=== PATIENT | female | born 1990 | race African-American/Black ===

== ENCOUNTER 2017-08-22 06:53 | Emergency (ER) | payer SELFPAY ==
[2017-08-22] MEDS ORDERED: LIDOCAINE 2% JELLY 5 ML TUBE TOP ONE (07:16)
--- NOTE | 2017-08-22 07:36 | ER Document Report ---
HPI - HPI Patient complains to provider of: Herpes rash for 3 months Onset: Other - 3 months Onset/Duration: Persistent Pain Level: 3 Context: 27-year-old female complaining of a itchy rash in her vagina and introitus for 3 months. She [facility] and was treated for herpes but it still is there. She had gestational diabetes and is wondering what her glucose is now because she has increased urinary frequency and blurred vision over the past 3 months as well. I will screen her for STDs and get an Accu-Chek. We will also check a urinalysis for UTI. No pelvic pain no fever no abdominal pain. Associated Symptoms: None Exacerbated by: Denies Relieved by: Denies Similar symptoms previously: Yes Recently seen / treated by doctor: No - ROS ROS below otherwise negative: Yes Systems Reviewed and Negative: Yes All other systems reviewed and negative - REPRODUCTIVE LMP: 08-07-17 Reproductive: REPORTS: : Past Medical History - General Information source: Patient - Social History Smoking Status: Current Every Day Smoker Frequency of alcohol use: None Drug Abuse: None Lives with: Family Family History: Reviewed & Not Pertinent - Medical History Notes: Gestational diabetes and insulin needed after childbirth in 2016. She has not had insulin for 2 years. Pulmonary Medical History: Reports: Hx Asthma - mdi Surgical Hx: Negative - Immunizations Hx Diphtheria, Pertussis, Tetanus Vaccination: Yes Hx Pneumococcal Vaccination: 08/02/12 Vertical Provider Document - CONSTITUTIONAL Agree With Documented VS: Yes - INFECTION CONTROL TRAVEL OUTSIDE OF THE U.S. IN LAST 30 DAYS: No - HEENT HEENT: Normocephalic - NECK Neck: Supple - RESPIRATORY Respiratory: Breath Sounds Normal, No Respiratory Distress - CARDIOVASCULAR Cardiovascular: Regular Rate, Regular Rhythm - GI/ABDOMEN Gastrointestinal: Abdomen Soft, Abdomen Non-Tender, No Organomegaly - REPRODUCTIVE Female Genitalia: negative: CMT Notes: inflamed introitus with clumpy white vaginal discharge in the vault - BACK Back: Normal Inspection. negative: CVA Tenderness-Right, CVA Tenderness-Left - MUSCULOSKELETAL/EXTREMETIES Musculoskeletal/Extremeties: MAEW - NEURO Level of Consciousness: Awake - DERM Notes: see civil estimator note Course - Re-evaluation Re-evalutation: 08/22/17 07:41 Accu-Chek is 512 on 518. She states she has a urinary frequency since April. Last time she took insulin was 2 years ago. She did not have diabetes until she was in 2016. Will order serum labs. 08/22/17 07:59 The introitus is red and irritated patient states the itching intravaginal looks like yeast I sent the specimens down. I will give her 2 L of normal saline to dilute her glucose down and she states she has never taken oral medicine for diabetes only insulin. 08/22/17 08:47 Wet prep has no yeast which is inconsistent with a physical exam but it does have 4+ bacteria 4+ epi is I will treat her with Flagyl. 08/22/17 09:33 Accu-Chek is down to 377 or 390 2:09 liters of normal saline. 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 drink 2 liters of water daily go to [facility] for your care Prescriptions: Lancets [Glucocom Lancets] 1 each MC BID #1 packet Lancets [Glucocom] 1 each MC DAILY #1 each Metformin HCl [Glucophage] 1,000 mg PO BID #60 tablet Metronidazole 500 mg PO BID #14 tablet Referrals: LEATHA ALTAMIRANO MD [ACTIVE STAFF] - Follow up as needed
[2017-08-22] MEDS ORDERED: NORMAL SALINE 1000 ML 2,000 ML IV ONE (07:58)
[2017-08-22] MEDS ORDERED: NYSTATIN/TRIAMCIN CREAM 15 GM TP ONE (07:58)
[2017-08-22 08:10] LABS: ABSOLUTE EOSINOPHILS # (AUTO) 0.1 10^3/uL (0.0-0.6); ABSOLUTE LYMPHOCYTES (AUTO) 1.8 10^3/uL (0.5-4.7); ABSOLUTE MONOCYTES (AUTO) 0.6 10^3/uL (0.1-1.4); ABSOLUTE NEUT (AUTO) 3.3 10^3/uL (1.7-8.2); BASOPHILS % (AUTO) 0.6 % (0-2); HEMATOCRIT 34.6 % (36.0-47.0); HEMOGLOBIN 11.3 g/dL (12.0-15.5); LYMPHOCYTES % (AUTO) 31.5 % (13-45); MEAN CORPUSCULAR HEMOGLOBIN 26.5 pg (27.0-33.4); MEAN CORPUSCULAR HGB CONC 32.5 g/dL (32.0-36.0); MEAN CORPUSCULAR VOLUME 82 fl (80-97); MONOCYTES % (AUTO) 10.4 % (3-13); PLATELET COUNT 203 10^3/uL (150-450); RED BLOOD COUNT 4.25 10^6/uL (3.72-5.28); RED CELL DISTRIBUTION WIDTH 15.3 % (11.5-14.0); SEGMENTED NEUTROPHILS % (AUTO) 56.5 % (42-78); TOTAL CELLS COUNTED % (AUTO) 100 %; WHITE BLOOD COUNT 5.8 10^3/uL (4.0-10.5)
[2017-08-22 08:13] LABS: T.VAGINALIS (WET MOUNT) NO TRICHOMONAS SEEN; YEAST (WET MOUNT) NO YEAST SEEN
[2017-08-22 08:14] LABS: BACTERIA (WET MOUNT) 4+ BACTERIA SEEN; EPITHELIALS (WET MOUNT) 4+ EPITHELIALS SEEN; WBCS (WET MOUNT) FEW WBCS SEEN
[2017-08-22 08:15] LABS: APPEARANCE,URINE CLEAR; BILIRUBIN,URINE NEGATIVE (NEGATIVE); COLOR,URINE STRAW; GLUCOSE, URINE >=500 mg/dL (NEGATIVE); KETONES,URINE 20 mg/dL (NEGATIVE); LEUKOCYTE ESTERASE,URINE NEGATIVE (NEGATIVE); NITRITE,URINE NEGATIVE (NEGATIVE); PROTEIN,URINE NEGATIVE (NEGATIVE); URINE SPECIFIC GRAVITY 1.024; UROBILINOGEN,URINE NEGATIVE mg/dL (<2.0)
[2017-08-22 08:27] LABS: ALANINE AMINOTRANSFERASE 76 U/L (9-52); ALKALINE PHOSPHATASE 220 U/L (38-126); ANION GAP 9 (5-19); ASPARTATE AMINO TRANSFERASE 63 U/L (14-36); BILIRUBIN,DIRECT 0.2 mg/dL (0.0-0.4); BILIRUBIN,TOTAL 0.2 mg/dL (0.2-1.3); BLOOD UREA NITROGEN 4 mg/dL (7-20); CALCIUM 9.3 mg/dL (8.4-10.2); CARBON DIOXIDE 25 mmol/L (22-30); CHLORIDE 101 mmol/L (98-107); POTASSIUM 4.2 mmol/L (3.6-5.0); SODIUM 135.3 mmol/L (137-145); TOTAL PROTEIN 7.1 g/dL (6.3-8.2)
[2017-08-22] MEDS ORDERED: METRONIDAZOLE 500 MG TABLET PO ONE (08:35)
[2017-08-22] MEDS ORDERED: ONDANSETRON 4 MG TAB.RAPDIS PO ONE (08:35)
[2017-08-22 08:36] LABS: GLUCOSE 514 mg/dL (75-110)
[2017-08-22 09:39] LABS: CHLAM PCR NOT DETECTED (NOT DETECT); GON PCR NOT DETECTED (NOT DETECT)
[2017-08-22 09:48] VITALS: BP 129/86
[2017-08-22] MEDS ORDERED: NORMAL SALINE 1000 ML 1,000 ML IV ONE (11:27)
== END 2017-08-22 10:00 | disposition home or self-care (01) ==
LOC: ER 06:53
DX: E11.65 Type 2 diabetes mellitus with hyperglycemia (principal); R35.0 Frequency of micturition; R21 Rash and other nonspecific skin eruption; F17.200 Nicotine dependence, unspecified, uncomplicated; Z79.4 Long term (current) use of insulin
CPT/HCPCS: 99285; 96360; 36415; 87086; 87210; 82962; 85025; 81025; 80053; 81001; 87491; 87591; S0119; J3490; J7030

== ENCOUNTER 2018-07-14 08:55 | Emergency (ER) | payer MEDICAID ==
[2018-07-14 09:05] VITALS: BP 120/87
--- NOTE | 2018-07-14 09:53 | ER Document Report ---
HPI - HPI Time Seen by Provider: 07/14/18 09:12 Onset/Duration: Gradual Quality of pain: Achy Pain Level: 1 Context: Patient presents with a 5-day history of cough, body aches and subjective fever at home. Associated Symptoms: Body/muscle aches, Nonproductive cough, Fever. denies: Rhinnorhea Exacerbated by: Denies Relieved by: Denies Similar symptoms previously: Yes Recently seen / treated by doctor: No - ROS ROS below otherwise negative: Yes Systems Reviewed and Negative: Yes All other systems reviewed and negative - CONSTITUTIONAL Constitutional: REPORTS: Fever - EENT EENT: REPORTS: Congestion - RESPIRATORY Respiratory: REPORTS: Coughing - GASTROINTESTINAL Gastrointestinal: DENIES: Nausea, Patient vomiting - REPRODUCTIVE Reproductive: DENIES: : - DERM Skin Color: Normal Skin Problems: None Past Medical History - General Information source: Patient - Social History Smoking Status: Current Every Day Smoker Chew tobacco use (# tins/day): No Smoking Education Provided: Yes Frequency of alcohol use: Occasional Drug Abuse: None Occupation: Call center Family History: Reviewed & Not Pertinent Patient has suicidal ideation: No Patient has homicidal ideation: No Pulmonary Medical History: Reports: Hx Asthma - mdi Neurological Medical History: Denies: Hx Cerebrovascular Accident, Hx Seizures Endocrine Medical History: Reports: Hx Diabetes Mellitus Type 2 Renal/ Medical History: Denies: Hx Peritoneal Dialysis Musculoskeletal Medical History: Denies Hx Arthritis Surgical Hx: Negative - Immunizations Hx Diphtheria, Pertussis, Tetanus Vaccination: Yes Hx Pneumococcal Vaccination: 08/02/12 Vertical Provider Document - CONSTITUTIONAL Agree With Documented VS: Yes Exam Limitations: No Limitations General Appearance: WD/WN, No Apparent Distress - INFECTION CONTROL TRAVEL OUTSIDE OF THE [place] IN LAST 30 DAYS: No - HEENT HEENT: Atraumatic, Normocephalic. negative: Pharyngeal Exudate, Pharyngeal Tenderness, Pharyngeal Erythema, Tympanic Membrane Red, Tympanic Membrane Bulging Notes: Clear rhinorrhea - NECK Neck: Normal Inspection, Supple. negative: Lymphadenopathy-Left, Lymphadenopathy-Right - RESPIRATORY Respiratory: No Respiratory Distress, Chest Non-Tender, Other - Occasional cough - CARDIOVASCULAR Cardiovascular: Regular Rate, Regular Rhythm, No Murmur - GI/ABDOMEN Gastrointestinal: Abdomen Soft - BACK Back: Normal Inspection - MUSCULOSKELETAL/EXTREMETIES Musculoskeletal/Extremeties: NORMAN TORRES - NEURO Level of Consciousness: Awake, Alert, Appropriate Motor/Sensory: No Motor Deficit - DERM Integumentary: Warm, Dry, No Rash Course - Re-evaluation Re-evalutation: 07/14/18 09:52 Offered patient chest x-ray, patient declines stating that she only came here today for a work note. Patient states she feels her symptoms are better. - Vital Signs Vital signs: Temp Pulse Resp BP Pulse Ox 98.1 F 80 16 120/87 H 98 07/14/18 09:01 07/14/18 09:01 07/14/18 09:01 07/14/18 09:01 07/14/18 09:01 Discharge - Discharge Clinical Impression: Upper respiratory infection Qualifiers: URI type: unspecified URI Qualified Code(s): J06.9 - Acute upper respiratory infection, unspecified Condition: Stable Disposition: HOME, SELF-CARE Instructions: Acetaminophen, Upper Respiratory Illness ([facility]) Additional Instructions: Return immediately for any new or worsening symptoms Followup with your primary care provider, call tomorrow to make a followup appointment Forms: Smoking Cessation Education, Return to Work Referrals: [facility] [Provider Group] - Follow up as needed
== END 2018-07-14 09:56 | disposition home or self-care (01) ==
LOC: ER 08:55
DX: J06.9 Acute upper respiratory infection, unspecified (principal); R05 Cough; M79.10 Myalgia, unspecified site; J34.89 Other specified disorders of nose and nasal sinuses; J45.909 Unspecified asthma, uncomplicated; E11.9 Type 2 diabetes mellitus without complications; F17.200 Nicotine dependence, unspecified, uncomplicated
CPT/HCPCS: 99283

== ENCOUNTER 2018-07-22 17:34 | Emergency (ER) | payer MEDICAID ==
[2018-07-22] MEDS ORDERED: PHENAZOPYRIDINE HCL 200 MG TABLET PO ONE (19:47)
[2018-07-22] MEDS ORDERED: IBUPROFEN 600 MG TABLET PO ONE (19:47)
--- NOTE | 2018-07-22 19:49 | ER Document Report ---
ED GI/ - General Mode of Arrival: Ambulatory Information source: Patient TRAVEL OUTSIDE OF THE U.[place]. IN LAST 30 DAYS: No - HPI Patient complains to provider of: Dysuria - General Chief Complaint: Urinary Problem Stated Complaint: URINARY ISSUE Time Seen by Provider: 07/22/18 19:41 Primary Care Provider: [facility] [Provider Group] - Follow up as needed - HPI Notes: 07/22/18 19:48 Patient is here with complaints of dysuria for the last week. States she is al so noticed some blood in her urine. She has been having some lower abdominal cramping and now has some low back pain. No fevers. No nausea, vomiting. No diarrhea. No chest pain or shortness of breath. No injury. No rash. No difficulty controlling bowels or bladder. Pain in her back is constant, nothing makes it better or worse. Lower abdominal discomfort is intermittent and she denies any abdominal pain now. She denies any other complaints at this time. No vaginal bleeding or discharge. (STEVE WEBB) - Related Data Allergies/Adverse Reactions: No Known Allergies Allergy (Verified 07/14/18 08:58) Past Medical History - General Last Menstrual Period: last month - Social History Smoking Status: Current Every Day Smoker Frequency of alcohol use: Occasional Drug Abuse: None Family History: Reviewed & Not Pertinent Patient has suicidal ideation: No Patient has homicidal ideation: No - Past Medical History Cardiac Medical History: Denies: Hx Coronary Artery Disease, Hx Heart Attack, Hx Hypertension Pulmonary Medical History: Reports: Hx Asthma - mdi Denies: Hx Bronchitis, Hx COPD, Hx Pneumonia Neurological Medical History: Denies: Hx Cerebrovascular Accident, Hx Seizures Endocrine Medical History: Reports: Hx Diabetes Mellitus Type 2 Renal/ Medical History: Denies: Hx Peritoneal Dialysis Musculoskeletal Medical History: Denies Hx Arthritis - Immunizations Hx Diphtheria, Pertussis, Tetanus Vaccination: Yes Hx Pneumococcal Vaccination: 08/02/12 Review of Systems - Review of Systems -: Yes All other systems reviewed and negative Physical Exam - Vital signs Vitals: Temp Pulse Resp BP Pulse Ox 98.2 F 69 18 123/78 99 07/22/18 18:01 07/22/18 18:01 07/22/18 18:01 07/22/18 18:01 07/22/18 18:01 - Notes Notes: GENERAL: alert, cooperative, nontoxic, no distress. HEAD: normocephalic, atraumatic EYES: conjunctiva pink without discharge, no external redness or swelling. EARS: no external swelling, no external redness NOSE: atraumatic, no external swelling MOUTH/THROAT: mucous membranes moist and pink, posterior pharynx without erythema, swelling, exudate. No trismus or drooling. NECK: soft, supple, full range of motion, no meningismus. CHEST: no distress, lungs clear and equal throughout. No wheezing, rales, rhonchi. CARDIAC: regular rate and rhythm, no murmur, normal capillary refill, normal pulses. No peripheral edema noted. ABDOMEN: Soft, nontender. No rebound tenderness or guarding. No mass. BACK: full range of motion, no CVA tenderness. EXTREMITIES: full range of motion of all extremities. No redness, no swelling. NEURO: alert and oriented x 3, no focal deficits, full range of motion of all extremities. PYSCH: appropriate mood, affect. Patient is cooperative. SKIN: pink, warm, dry, no rash. (STEVE WEBB) Course - Re-evaluation Re-evalutation: 07/22/18 20:52 Patient is nontoxic-appearing with stable vitals. Patient here with complaints of urinary symptoms consistent with previous UTI she had in the past. No fever. She is no CVA tenderness on exam and has no focal abdominal tenderness on exam. She is afebrile and her vitals are stable. Urinalysis is currently pending at this time. Based on the patient's symptoms I anticipate that she will have a urinary tract infection. If her urine is positive for UTI, the patient will be discharged home with Keflex and Pyridium. If negative further evaluation will be indicated. [facility] Roger will look at UA results. (STEVE WEBB) 07/22/18 21:04 Laboratory 07/22/18 19:57 Urine Color YELLOW Urine Appearance CLOUDY Urine pH 6.0 Ur Specific [place] 1.024 Urine Protein NEGATIVE Urine Glucose (UA) NEGATIVE Urine Ketones NEGATIVE Urine Blood NEGATIVE Urine Nitrite POSITIVE H Urine Bilirubin NEGATIVE Urine Urobilinogen NEGATIVE Ur Leukocyte Esterase NEGATIVE Urine WBC (Auto) 9 Urine RBC (Auto) 3 U Hyaline Cast (Auto) 1 Urine Bacteria (Auto) 1+ Squamous Epi Cells Auto 5 Urine Mucus (Auto) FEW Urine Ascorbic Acid NEGATIVE Urine HCG, Qual NEGATIVE Although WBC are 9 and Squamous are 5, could be a contaminated sample. +1 Bacteria and +Nitrites, will treat for UTI, CX sent. Pt. stable for D/C, non-tachycardic, afebrile. (ADRIAN HEBERT) - Vital Signs Vital signs: Temp Pulse Resp BP Pulse Ox 98.2 F 69 18 123/78 99 07/22/18 18:01 07/22/18 18:01 07/22/18 18:01 07/22/18 18:01 07/22/18 18:01 - Laboratory Laboratory results interpreted by me: 07/22/18 19:57 Urine Nitrite POSITIVE H Discharge - Discharge Clinical Impression: UTI (urinary tract infection) Qualifiers: Urinary tract infection type: acute cystitis Hematuria presence: with hematuria Qualified Code(s): N30.01 - Acute cystitis with hematuria Condition: Stable Disposition: HOME, SELF-CARE Instructions: Cephalexin ([facility]), Urinary Tract Infection ([facility]) Additional Instructions: Take medication as prescribed. Drink lots of fluids. Follow-up if not better in the next 3 to 5 days, sooner for worsening pain, fever, persistent vomiting, flank pain, or for any further concerns. Prescriptions: Cephalexin Monohydrate [Keflex 500 mg Capsule] 500 mg PO Q6H 7 Days #28 capsule Phenazopyridine HCl [Pyridium 200 mg Tablet] 200 mg PO TID #9 tablet Forms: Smoking Cessation Education Referrals: [facility] [Provider Group] - Follow up as needed
[2018-07-22 20:55] LABS: APPEARANCE,URINE CLOUDY; BILIRUBIN,URINE NEGATIVE (NEGATIVE); COLOR,URINE YELLOW; GLUCOSE, URINE NEGATIVE (NEGATIVE); KETONES,URINE NEGATIVE (NEGATIVE); LEUKOCYTE ESTERASE,URINE NEGATIVE (NEGATIVE); NITRITE,URINE POSITIVE (NEGATIVE); PROTEIN,URINE NEGATIVE (NEGATIVE); URINE SPECIFIC GRAVITY 1.024; UROBILINOGEN,URINE NEGATIVE mg/dL (<2.0)
[2018-07-22 21:53] VITALS: BP 127/82
== END 2018-07-22 21:35 | disposition home or self-care (01) ==
LOC: ER 17:34
DX: N30.01 Acute cystitis with hematuria (principal); F17.200 Nicotine dependence, unspecified, uncomplicated; E11.9 Type 2 diabetes mellitus without complications
CPT/HCPCS: 99283; 87086; 81025; 87088; 81001; 87186; J3490 ×2

== ENCOUNTER 2018-09-07 13:15 | Emergency (ER) | payer MEDICAID ==
--- NOTE | 2018-09-07 14:40 | ER Document Report ---
ED Medical Screen (RME) - General Chief Complaint: Vaginal Bleeding Stated Complaint: ABDOMINAL PAIN,VAGAINAL BLEEDING Time Seen by Provider: 09/07/18 14:23 Mode of Arrival: Ambulatory Information source: Patient Notes: Patient is a healthy 28-year-old female presenting to the emergency department with complaints of passing large blood clots and lower abdominal pain after having a chemical done on Wednesday which was 5 days ago. Patient reports she is passing blood clots larger than the size of a golf ball. Patient reports that she did pass the fetus several days ago. She reports mild nausea with vomiting. She reports she is changing her pad at least once per hour. Exam: Low abdominal tenderness upon palpation. I have greeted and performed a rapid initial assessment of this patient. A comprehensive ED assessment and evaluation of the patient, analysis of test results and completion of the medical decision making process will be conducted by additional ED providers. Dictation of this chart was performed using voice recognition software; therefore, there may be some unintended grammatical errors. TRAVEL OUTSIDE OF THE [place]. IN LAST 30 DAYS: No - Related Data Allergies/Adverse Reactions: No Known Allergies Allergy (Verified 07/14/18 08:58) Past Medical History - Social History Chew tobacco use (# tins/day): No Frequency of alcohol use: None Drug Abuse: None - Past Medical History Cardiac Medical History: Denies: Hx Coronary Artery Disease, Hx Heart Attack, Hx Hypertension Pulmonary Medical History: Reports: Hx Asthma - mdi Denies: Hx Bronchitis, Hx COPD, Hx Pneumonia Neurological Medical History: Denies: Hx Cerebrovascular Accident, Hx Seizures Endocrine Medical History: Reports: Hx Diabetes Mellitus Type 2 Renal/ Medical History: Denies: Hx Peritoneal Dialysis Musculoskeltal Medical History: Denies Hx Arthritis - Immunizations Hx Diphtheria, Pertussis, Tetanus Vaccination: Yes Physical Exam - Vital signs Vitals: Temp Pulse Resp BP Pulse Ox 98.6 F 77 20 127/79 H 99 09/07/18 13:20 09/07/18 13:20 09/07/18 13:20 09/07/18 13:20 09/07/18 13:20 Course - Vital Signs Vital signs: Temp Pulse Resp BP Pulse Ox 98.6 F 77 20 127/79 H 99 09/07/18 13:20 09/07/18 13:20 09/07/18 13:20 09/07/18 13:20 09/07/18 13:20
[2018-09-07 15:40] LABS: ABSOLUTE BASOPHILS # (AUTO) 0.1 10^3/uL (0.0-0.2); ABSOLUTE EOSINOPHILS # (AUTO) 0.1 10^3/uL (0.0-0.6); ABSOLUTE LYMPHOCYTES (AUTO) 2.7 10^3/uL (0.5-4.7); ABSOLUTE MONOCYTES (AUTO) 0.4 10^3/uL (0.1-1.4); ABSOLUTE NEUT (AUTO) 2.5 10^3/uL (1.7-8.2); BASOPHILS % (AUTO) 1.3 % (0-2); HEMATOCRIT 30.5 % (36.0-47.0); LYMPHOCYTES % (AUTO) 47.4 % (13-45); MEAN CORPUSCULAR HEMOGLOBIN 26.5 pg (27.0-33.4); MEAN CORPUSCULAR HGB CONC 32.8 g/dL (32.0-36.0); MEAN CORPUSCULAR VOLUME 81 fl (80-97); MONOCYTES % (AUTO) 6.4 % (3-13); PLATELET COUNT 190 10^3/uL (150-450); RED BLOOD COUNT 3.79 10^6/uL (3.72-5.28); RED CELL DISTRIBUTION WIDTH 19.4 % (11.5-14.0); SEGMENTED NEUTROPHILS % (AUTO) 42.9 % (42-78); TOTAL CELLS COUNTED % (AUTO) 100 %; WHITE BLOOD COUNT 5.7 10^3/uL (4.0-10.5)
[2018-09-07 15:44] LABS: APPEARANCE,URINE CLOUDY; BILIRUBIN,URINE NEGATIVE (NEGATIVE); COLOR,URINE YELLOW; GLUCOSE, URINE NEGATIVE (NEGATIVE); KETONES,URINE NEGATIVE (NEGATIVE); LEUKOCYTE ESTERASE,URINE TRACE (NEGATIVE); NITRITE,URINE NEGATIVE (NEGATIVE); PROTEIN,URINE 100 mg/dL (NEGATIVE); URINE SPECIFIC GRAVITY 1.025; UROBILINOGEN,URINE NEGATIVE mg/dL (<2.0)
--- NOTE | 2018-09-07 17:20 | RADIOLOGY REPORT (SQ) ---
EXAM DESCRIPTION: U/S [id number] TRNABD 1GES W/ODOP COMPLETED DATE/TIME: 09/07/2018 5:00 pm REASON FOR STUDY: recent , eval for retained POC COMPARISON: None. TECHNIQUE: Transabdominal static and realtime grayscale images acquired of the pelvis. Additional se lected spectral and color Doppler images recorded. All images stored on PACs. CLINICAL AGE: 8 weeks 0 days bHCG: Pending. LIMITATIONS: None. FINDINGS: UTERUS: No masses. No anomalies. GESTATIONAL SAC: There is a possible gestational in the uterus. Estimated gestational age 5 weeks 5 days. This is less than the clinical dates. YOLK SAC: No POLE: None present. RIGHT ADNEXA: Normal ovary with normal vascular flow. No adnexal free fluid. No adnexal masses. LEFT ADNEXA: Ovary not identified due to poor acoustical window. No adnexal free fluid. No adnexal masses. FREE FLUID: None. OTHER: No other significant finding. IMPRESSION: Possible gestational sac in the uterus, however this is less than the clinical dates. BHCG LEVEL NOT AVAILABLE FOR CORRELATION WITH US FINDINGS. CONSIDER F/U BHCG AND/OR ULTRASOUND FOR VERIFICATION . Trimester of : First - 0 to 13 weeks. TECHNICAL DOCUMENTATION: JOB ID: [id number] [employer]- All Rights Reserved Reading location - IP/workstation name: [email or web address]
--- NOTE | 2018-09-07 21:26 | ER Document Report ---
ED General - General Chief Complaint: Vaginal Bleeding Stated Complaint: ABDOMINAL PAIN,VAGAINAL BLEEDING Time Seen by Provider: 09/07/18 14:23 Mode of Arrival: Ambulatory Notes: Patient is a healthy 28-year-old female presenting to the emergency department with complaints of passing large blood clots and lower abdominal pain after having a chemical done on Wednesday. Patient reports she is passing blood clots larger than the size of a golf ball. Patient reports that she did pass the fetus several days ago. She reports mild nausea with vomiting. She also complains of tearing abdominal pain that is not joe to cramping. She reports she is changing her pad at least once per hour. She denies fevers or chills, shortness of breath or chest pain, dizziness/lightheadedness, weakness, numbness tingling in any of her extremities. No other complaints. She states she did get RhoGam injection at the clinic in [place] where she had the procedure done. TRAVEL OUTSIDE OF THE [place]. IN LAST 30 DAYS: No - Related Data Allergies/Adverse Reactions: No Known Allergies Allergy (Verified 07/14/18 08:58) Past Medical History - General Information source: Patient - Social History Smoking Status: Current Every Day Smoker Chew tobacco use (# tins/day): No Frequency of alcohol use: None Drug Abuse: None Family History: Reviewed & Not Pertinent Patient has suicidal ideation: No Patient has homicidal ideation: No - Past Medical History Cardiac Medical History: Denies: Hx Coronary Artery Disease, Hx Heart Attack, Hx Hypertension Pulmonary Medical History: Reports: Hx Asthma - mdi Denies: Hx Bronchitis, Hx COPD, Hx Pneumonia Neurological Medical History: Denies: Hx Cerebrovascular Accident, Hx Seizures Endocrine Medical History: Reports: Hx Diabetes Mellitus Type 2 Renal/ Medical History: Denies: Hx Peritoneal Dialysis Musculoskeletal Medical History: Denies Hx Arthritis - Immunizations Hx Diphtheria, Pertussis, Tetanus Vaccination: Yes Hx Pneumococcal Vaccination: 08/02/12 Review of Systems - Review of Systems Constitutional: See HPI EENT: No symptoms reported Cardiovascular: See HPI Respiratory: See HPI Gastrointestinal: No symptoms reported Genitourinary: No symptoms reported Female Genitourinary: See HPI Musculoskeletal: No symptoms reported Skin: No symptoms reported Hematologic/Lymphatic: No symptoms reported Neurological/Psychological: See HPI Physical Exam - Vital signs Vitals: Temp Pulse Resp BP Pulse Ox 98.6 F 77 20 127/79 H 99 09/07/18 13:20 09/07/18 13:20 09/07/18 13:20 09/07/18 13:20 09/07/18 13:20 - Notes Notes: PHYSICAL EXAMINATION: Reviewed vital signs and charting by RN GENERAL: Alert, interacts well. No acute distress. HEAD: Normocephalic, atraumatic. EYES: Pupils equal and round. Extraocular movements intact. ENT: Oral mucosa moist, tongue midline. NECK: Full range of motion. Trachea midline. LUNGS: Clear to auscultation bilaterally, no wheezes, rales, or rhonchi. No respiratory distress. HEART: Regular rate and rhythm. No murmur ABDOMEN: soft, left lower quadrant tenderness to palpation, suprapubic tenderness. No distention. Bowel sounds present : Pelvic exam performed with DANIELLE Murguia, wood calker. Scant amount of blood in the vaginal introitus, cervical loss partially open with a small clot present, no gross heavy bleeding. No abnormal discharge. EXTREMITIES: Moves all 4 extremities spontaneously. No edema, No cyanosis. PSYCH: Normal affect, normal mood. SKIN: Warm, dry, normal turgor. No rashes or lesions noted. Course - Re-evaluation Re-evalutation: 09/07/18 21:25 Overall well-appearing, vital signs within normal limits, patient is not tachycardic or symptomatic. Hemoglobin 10 but patient has baseline anemia and no major changes from previous blood work. Patient states she did get RhoGam injection at the [facility] where she had a chemical performed. Her blood work was overall within normal limits except for hemoglobin of 10 as noted. Transvaginal ultrasound showed possible small amount of retained products of conception. Because cervical loss still open and her symptoms have improved greatly since this morning I have given her strict return precautions and anticipatory guidance. At this time patient is stable for discharge. - Vital Signs Vital signs: Temp Pulse Resp BP Pulse Ox 98.4 F 79 18 105/56 L 98 09/07/18 18:11 09/07/18 18:11 09/07/18 18:11 09/07/18 18:11 09/07/18 18:11 - Laboratory Result Diagrams: 09/07/18 15:00 Laboratory results interpreted by me: 09/07/18 09/07/1819 15:00 15:00 15:00 Hgb 10.0 L Hct 30.5 L MCH 26.5 L RDW 19.4 H Lymphocytes % 47.4 H Beta HCG, Quant 04008.00 H Urine Protein 100 H Urine Blood LARGE H Ur Leukocyte Esterase TRACE H Discharge - Discharge Clinical Impression: Vaginal bleeding Condition: Good Disposition: HOME, SELF-CARE Additional Instructions: You were seen in the emergency department this afternoon for vaginal bleeding after the procedure you had last Wednesday. Because your symptoms have greatly improved, all of your lab work is within normal limits, and your ultrasound was reassuring there is nothing dangerous to keep you in the hospital today. Please note that you can expect to have cramping for the next several days. Also, please take the ibuprofen 800 mg every 6-8 hours [id number] to help with cramping and bleeding. As we discussed, please return to the emergency department if you continue to have heavy bleeding, go through more than 2 pads in 2 hours with symptoms of dizziness, lightheadedness, weakness, or you pass out. If you continue to have severe tearing abdominal pain or cramping in the next 48 hours please return for reevaluation. If you have any other concerns at all please do not hesitate to return for reevaluation. Forms: Return to Work
[2018-09-07] MEDS ORDERED: FLUCONAZOLE 100 MG TABLET PO ONE (21:28)
[2018-09-07 22:04] VITALS: BP 125/75
== END 2018-09-07 22:02 | disposition home or self-care (01) ==
LOC: ER 13:15
DX: O04.89 (Induced) termination of pregnancy with other complications (principal); R10.30 Lower abdominal pain, unspecified; N93.9 Abnormal uterine and vaginal bleeding, unspecified; F17.200 Nicotine dependence, unspecified, uncomplicated; J45.909 Unspecified asthma, uncomplicated; E11.9 Type 2 diabetes mellitus without complications
CPT/HCPCS: 99284; 86900; 86901; 36415; 84702; 85025; 81001; 76801; J3490